=== PATIENT | female | born 1955 ===

== ENCOUNTER 2023-10-27 16:07 | Outpatient (REF) | payer BC, SELFPAY ==
[2023-10-27 17:21] LABS: Bacteria Many HPF (Negative); C & S Indicated? C&S Done As Ordered; Crystals Negative HPF (Negative); Epithelial Cells Few HPF (Negative); Mucus Negative (Negative); WBC >50 HPF (0-5)
== END 2023-10-27 16:08 | disposition home or self-care (01) ==
LOC: LBN 16:07
PROVIDERS: Visit Provider Physician Assistant Medical
DX: R30.0 Dysuria (principal)
CPT/HCPCS: 87077; 81015; 87086; 87186